=== PATIENT | male | born 1985 | race Caucasian/White ===

== ENCOUNTER 2017-11-23 06:54 | Emergency (ER) | payer BC, OTHER ==
[~2017-11-23] VITALS: Ht 182.9 cm; Wt 88.0 kg
[~2017-11-23 06:54] MED LIST: DICL75TA2 PO
[2017-11-23 06:59] VITALS: TEMP 36.6; Ht 182.9 cm; Wt 88.0 kg
[2017-11-23] MEDS ORDERED: BUPR8SUB19 SL (07:21)
[2017-11-23] MEDS ORDERED: RTL20 PO (07:21)
[2017-11-23] MEDS ORDERED: GABA800T PO (07:21)
[2017-11-23] MEDS ORDERED: KETOROLAC TROMETHAMINE 30 MG/ML VIAL IV STA (07:21)
--- NOTE | 2017-11-23 07:36 | EMERGENCY ROOM VISIT NOTE ---
History Report prepared by Leanna: Vince Arboleda Under the Supervision of: Dr. Dread Pritchard M.D. First contact with patient: 07:14 Chief Complaint: BACK PAIN Stated Complaint: BACK PAIN History of Present Illness The patient is a 32 year old male who presents to the Emergency Room with complaints of worsening bilateral lower back pain that began 7 hours ago. Patient states that he was working last night at the [facility] when he started to feel pain in his lower back after he was pushing a rolling cart. Patient states that the cart "wasn't that heavy". He states that he does not feel like he injured himself pushing the cart. He states that the pain was not that bad initially but has gotten progressively worse. Patient describes the pain as "shooting" and a "dull sensation". Patient adds that the pain "shoots" down his left leg. He states that the pain is worsened with movement. He states that this morning when he woke he was unable to stand and had to crawl to get to the bathroom. Patient adds that he has been vomiting and nauseas due to the pain for the past 3 hours. He adds that he has been hyperventilating. Patient states that he has a history of back problems and kidney stones. He states that his symptoms do not feel similar to his previous kidney stones. He states that he currently takes Suboxone and Gabapentin. He states that his last dose of Suboxone was an hour ago. Patient denies a history of back surgeries. Patient states that the his PCP is at [facility]. Patient denies hematuria, abdominal pain, fevers, numbness, and weakness. Patient states that he has a ride home from the ER today. Source of History: patient Onset: 7 hours ago Position: back (lower), leg (left) Quality: dull, other ("Shooting") Timing: worsening Modifying Factors (Worsening): movement Associated Symptoms: + nausea, + vomiting, No abdominal pain, No weakness, No numbness Note: Patient denies hematuria. Review of Systems See HPI for pertinent positives & negatives. A total of 10 systems reviewed and were otherwise negative. Past Medical & Surgical Medical Problems: (1) Back problem (2) Kidney stones Old medical records were reviewed. Nurse's notes were reviewed and I agree with. Family History Kidney disease Social History Smoking Status: Never Smoker Housing Status: lives alone Occupation Status: employed Current/Historical Medications Scheduled Buprenorphine Hcl (Subutex), 1 TAB SL Q12 Gabapentin (Neurontin), 800 MG PO TID Methylphenidate (Ritalin), 20 MG PO Q12 Scheduled PRN Oxycodone Ir (Roxicodone Ir), 1-2 TAB PO Q4H PRN for Severe Pain Allergies Coded Allergies: No Known Allergies (Unverified , 11/23/17) Physical Exam Vital Signs Date Time Temp Pulse Resp B/P (MAP) Pulse Ox O2 Delivery O2 Flow Rate FiO2 11/23/17 10:00 50 18 126/67 99 Room Air 11/23/17 09:09 53 18 116/66 98 Room Air 11/23/17 06:59 36.6 91 16 126/44 97 Room Air Physical Exam General: Non-ill appearing young male that appears uncomfortable. HEENT: Normal cephalic atraumatic. Pupils are equal round and reactive to light. Extraocular movements are intact. Oropharynx is pink with moist mucous membranes. No swelling of the mouth lips or tongue. Neck: Supple with a midline trachea. No meningeal signs or stiffness, no JVD or bruits. No Stridor. Chest: Clear to auscultation bilaterally. No wheezes or rhonchi. No increased work of breathing. Heart: regular rate and rhythm. Abdomen: Soft nontender, nondistended without rebound guarding or rigidity. Extremities: No numbness or weakness in legs. No cyanosis clubbing or edema. No calf tenderness or assymetry Spine/Back. Tenderness to central and lower lumbar area to palpation. No numbness or weakness in lower back or buttocks. No CVA tenderness Skin: Good turgor without rashes. Neurologic exam: Cranial nerves two through 12 are intact. Motor and sensation are intact and symmetrical throughout. Medical Decision & Procedures Laboratory Results Test 11/23/17 07:32 Urine Color DK YELLOW Urine Appearance CLEAR (CLEAR) Urine pH 6.0 (4.5-7.5) Urine Specific Criders 1.032 (1.000-1.030) Urine Protein NEG (NEG) Urine Glucose (UA) NEG (NEG) Urine Ketones NEG (NEG) Urine Occult Blood NEG (NEG) Urine Nitrite NEG (NEG) Urine Bilirubin NEG (NEG) Urine Urobilinogen NEG (NEG) Urine Leukocyte Esterase NEG (NEG) Laboratory studies as stated above per my review. Medications Administered Medications (Trade) Dose Ordered Sig/Barrie Route Start Time Stop Time Status Last Admin Dose Admin Ketorolac Tromethamine (Toradol Inj) 30 mg NOW STAT IV 11/23/17 07:21 11/23/17 07:23 DC 11/23/17 07:30 30 MG Ondansetron HCl (Zofran Inj) 4 mg NOW STAT IV 11/23/17 08:02 11/23/17 08:03 DC 11/23/17 08:09 4 MG Morphine Sulfate (MoRPHine SULFATE INJ) 6 mg NOW STAT IV 11/23/17 08:02 11/23/17 08:03 DC 11/23/17 08:10 6 MG Morphine Sulfate (MoRPHine SULFATE INJ) 6 mg NOW STAT IV 11/23/17 08:56 11/23/17 08:57 DC 11/23/17 09:08 6 MG ED Course 0715: Past medical records reviewed. The patient was evaluated in room B10, and a complete history and physical examination were performed. 0721: Toradol Inj 30mg IV 0800: I reassessed the patient. He states that he wants more pain medication. 0802: Morphine Sulfate 6mg IV and Zofran Inj 4mg IV 0854: Patient states that he wants more pain medication. 0856: Morphine Sulfate 6mg IV 0946: Upon reevaluation, the patient is resting comfortably. I discussed the results and treatment plan with him. He verbalized agreement of the treatment plan. The patient was discharged home. Medical Decision Differentials include, but are not limited to; musculoskeletal, kidney stone, disc disease, infection, and trauma. This patient comes in with lower back pain. 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 It is central. He has nothing to suggest infection. He had nothing to suggest cauda equina syndrome. He took his Subutex prior to arrival. He assures me he did not drive. IV access was established was given Toradol 30 [place] IV. Urinalysis was also obtained. He has neurologic deficits. He still required pain medication and was given morphine 6 mg IV and was given additional 6 mg of IV morphine and felt well. His urinalysis was negative. I think this is muscular. He was given a very small prescription for OxyIR and was encouraged to follow-up with his regular doctor he was warned that this can make him drowsy do not take before drinking, driving, working. He was happy the plan and discharged to home. Medication Reconcilliation Current Medication List: was personally reviewed by me Blood Pressure Screening Patient's blood pressure: Normal blood pressure Blood pressure disposition: Did not require urgent referral Impression Primary Impression: Low back pain Scribe Attestation The scribe's documentation has been prepared under my direction and personally reviewed by me in its entirety. I confirm that the note above accurately reflects all work, treatment, procedures, and medical decision making performed by me. Departure Information Dispostion Home / Self-Care Prescriptions Oxycodone Ir (Roxicodone Ir) 5 Mg Tab 1-2 TAB PO Q4H Y for Severe Pain, #10 TAB Prov: Dread Pritchard M.D. 11/23/17 Referrals No Doctor, Assigned (PCP) Forms HOME CARE DOCUMENTATION FORM, IMPORTANT VISIT INFORMATION Patient Instructions My [facility] Additional Instructions Rest. Drink plenty of fluids. May use OxyIR 5 mg, 1 or 2 pills every 4-6 hours as needed Do not take OxyIR with any other narcotics or sedating medications or alcohol OxyIR may make you drowsy - do not take before drinking, driving, working Return if: Increasing pain, numbness or weakness, change in bowel or bladder function, worsening symptoms, any new problems or concerns
[2017-11-23] MEDS ORDERED: ONDANSETRON INJ 2 MG/ML 2 ML VIAL IV STA (08:02)
[2017-11-23] MEDS ORDERED: MoRPHine SULFATE 10 MG/ML CARP/VIAL IV STA ×2 (08:02→08:56)
[2017-11-23] MEDS ORDERED: OXYC1TAB3 PO (09:45)
[2017-11-23 10:00] VITALS: BP 126/67; PULSE 50; O2SAT 99
== END 2017-11-23 10:13 | disposition home or self-care (01) ==
LOC: C.EDB 06:55
DX: M54.17 Radiculopathy, lumbosacral region (principal); R11.2 Nausea with vomiting, unspecified; Z79.899 Other long term (current) drug therapy